=== PATIENT | female | born 1970 | race Caucasian/White ===

== ENCOUNTER 2020-08-20 00:51 | Outpatient (CLI) | payer OTHER, SELFPAY ==
[2020-08-20 19:19] LABS: SARS-CoV-2 RNA PCR Negative
== END 2020-08-20 00:52 | disposition home or self-care (01) ==
LOC: ANHCOVIDDT 00:51
PROVIDERS: PCP Family Medicine; Visit Provider Internal Medicine Gastroenterology
DX: Z01.812 Encounter for preprocedural laboratory examination (principal); Z20.828 Contact with and (suspected) exposure to other viral communicable diseases
CPT/HCPCS: 87635; C9803; U0003

== ENCOUNTER 2020-08-22 00:50 | Day surgery (SDC) | payer OTHER, SELFPAY ==
[2020-08-15 14:11] VITALS: BMI 24.5
[2020-08-22] MEDS: LACTATED RINGERS 1,000 ML 150 ML IV CONT (09:55)
[2020-08-22 09:57] VITALS: BP 98/64; PULSE 77; RESP 16; TEMP 37.1; O2SAT 100
--- NOTE | 2020-08-22 10:16 | WPDANESEPPF ---
Anes - Initial Pre Proc Eval Procedure: Operation Date: 08/22/20 10:30 Proposed Procedures p Screening Colonoscopy - Italo Gruber MD Date/Time: 08/22/20 10:16 Surgeon: Italo Gruber MD Pre Op Diagnosis: neoplasm screening Patient Data Age: 50 Gender: F Height: 5 ft Weight: 56.6 kg Last Vital Signs Temp 98.7 F 08/22/20 09:57 Pulse 77 08/22/20 09:57 Resp 16 08/22/20 09:57 BP 98/64 L 08/22/20 09:57 Pulse Ox 100 08/22/20 09:57 Allergies Allergy/AdvReac Type Severity Reaction Status Date / Time aspirin Allergy Mild Hallucinati Verified 08/22/20 09:47 ng Home Medications Medication Instructions Recorded Confirmed Type No Home Medications 08/15/20 08/15/20 History Patient hx anesthesia problems: none Family hx anesthesia problems: none PMFSH Past Medical History Medical History (Updated 08/22/20 @ 10:19 by Ghulam Cobb MD) Mitral valve prolapse has palpitations Family History Family History Father Hypertension Mother Breast cancer Social History Social History Smoking status: Never smoker Alcohol intake: current Drinks per week: 8 Substance use: never Substance use type: does not use Living arrangements: with family Gender identity (if verbalized by the patient): Female Spiritual care concerns: No Anes - Eval Final PreProcedure Day of Procedure 08/22/20 10:16 Patient weight: normal Heart: regular rate and rhythm Lungs: clear to auscultation Airway: Mallampati scale class II Neurological: alert and oriented Last oral intake: >/= 8 hours ASA classification: II Emergent: no Anesthetic plan: proceed Anesthesia type and monitoring: general GIVS and standard monitoring Informed Consent: The patient's anesthetic plan and its attendant risks and benefits were discussed with the patient/family/POA. Questions were solicited and answers provided to the satisfaction of the patient/family/POA.
--- NOTE | 2020-08-22 10:24 | PM.HPGS ---
History of Present Illness History of Present Illness Consent: Risks, benefits, and alternatives have been discussed and questions answered. Patient agrees to proceed with procedure. Chief complaint: neoplasm screening Narrative: Rebekah Arguello is a 50 year old female here for screening colonoscopy Review of Systems Constitutional: Constitutional: Denies headache(s) and Denies weakness Eyes: Eyes: Denies blurry vision ENT: Reports Normal hearing present, Denies headache(s) and Denies neck pain Cardiovascular: Cardiovascular: Denies chest pain and Denies dyspnea Respiratory: Respiratory: Denies dyspnea Gastrointestinal: Gastrointestinal: Reports no additional gastrointestinal complaints Genitourinary: Genitourinary: Denies dysuria Musculoskeletal: Musculoskeletal: Denies neck pain Integumentary/Breasts: Skin/Breast: Denies dry skin Neurologic: Reports Normal hearing present, Denies headache(s) and Denies weakness Psychiatric: Psychiatric: Denies anxiety Endocrine: Endocrine: Denies change in body appearance Hematologic/Lymphatic: Hematologic/Lymphatic: Denies easy bleeding Allergic/Immunologic: Allergic/Immunologic: Denies urticaria [facility] Past Medical History Medical History (Updated 08/22/20 @ 10:25 by Italo Gruber MD) Colon cancer screening Mitral valve prolapse has palpitations Family History Family History Father Hypertension Mother Breast cancer Social History Social History Smoking status: Never smoker Alcohol intake: current Drinks per week: 8 Substance use: never Substance use type: does not use Living arrangements: with family Gender identity (if verbalized by the patient): Female Spiritual care concerns: No Meds Home Medications and Allergies Home Medications Medication Instructions Recorded Confirmed Type No Home Medications 08/15/20 08/15/20 History Allergies Allergy/AdvReac Type Severity Reaction Status Date / Time aspirin Allergy Mild Hallucinati Verified 08/22/20 09:47 ng Vital Signs Vital Signs - 24 hr 08/22/20 09:57 Temperature 98.7 F Pulse Rate 77 Respiratory Rate 16 Blood Pressure 98/64 L Pulse Oximetry 100 Exam Const: General: comfortable and no acute distress HENMT: General nose exam: Normal nares present Eyes: General: appearance normal, both eyes and all related structures Neck: Neck: no JVD Resp: Auscultation: clear to auscultation bilaterally Cardio: Rate: regular rate Rhythm: regular rhythm GI: Inspection: non-distended GI Palp: Yes Soft to palpation Skin: General skin exam: normal color Neuro: General: gait normal Speech: normal speech Extrem: General: normal to inspection Psych: Mental Status: mental status grossly normal Assessment and Plan Assessment and plan (1) Colon cancer screening: Code(s): Z12.11 - Encounter for screening for malignant neoplasm of colon Status: Acute Assessment and Plan: will proceed with colonoscopy
[2020-08-22 10:50] VITALS: BP 111/66; PULSE 86; RESP 24; O2SAT 100
[2020-08-22 11:00] VITALS: BP 110/73; PULSE 63; RESP 15; O2SAT 100
[2020-08-22 11:10] VITALS: BP 115/67; PULSE 68; RESP 23; O2SAT 97
== END 2020-08-22 11:28 | disposition home or self-care (01) ==
PROVIDERS: PCP Family Medicine; Visit Provider Internal Medicine Gastroenterology
PROC: 0DJD8ZZ Inspection of Lower Intestinal Tract, Via Natural or Artificial Opening Endoscopic (ICD-10-PCS; CPT 45378; principal; 2020-08-22 10:30)
DX: Z12.11 Encounter for screening for malignant neoplasm of colon (principal); K64.8 Other hemorrhoids; I34.1 Nonrheumatic mitral (valve) prolapse
CPT/HCPCS: 45378; J2704; J7120

== ENCOUNTER 2020-08-29 12:32 | Outpatient (CLI) | payer OTHER, SELFPAY ==
--- NOTE | ~2020-08-29 | XR_ITS ---
EXAMINATION: XR knee LT 3V DATE: 08/29/2020 12:48 INDICATION: Left knee pain. TECHNIQUE: 3 views of left knee were obtained. COMPARISON: None. FINDINGS: Bone alignment is normal. No fracture. Joint spaces are well maintained. There is no knee j oint effusion. IMPRESSION: 1. Normal left knee. Reviewed, dictated and finalized at location A. IMPRESSION: 1. Normal left knee.
== END 2020-08-29 12:33 | disposition home or self-care (01) ==
PROVIDERS: PCP Family Medicine; Visit Provider Family Medicine
DX: M25.562 Pain in left knee (principal)
CPT/HCPCS: 73562

== ENCOUNTER → 2021-12-14 12:14 | Outpatient (CLI) | payer OTHER, SELFPAY ==
--- NOTE | ~2021-12-14 | XR_ITS ---
EXAMINATION: XR thoracic spine 3V EXAM DATE: 12/14/2021 12:44 INDICATION: T-Spine Pain since yesterday, worse on the right side. TECHNIQUE: Frontal and lateral projections of the thoracic spine as well as lateral swimmers projecti on of the upper thoracic spine for interpretation. There is no prior study for comparison. FINDINGS: There is mild mid thoracic dextroscoliosis. The vertebral bodies are aligned in the AP dim ension. Vertebral body and disc heights are well-maintained. no endplate erosive change. Paraspinal soft tissue is unremarkable. IMPRESSION: Mild mid thoracic dextroscoliosis. Reviewed, dictated and finalized at location G. [employer]
== END ==
PROVIDERS: Visit Provider Physician Assistant
DX: M54.6 Pain in thoracic spine (principal)
CPT/HCPCS: 72072